=== PATIENT | male | born 1935 | race Caucasian/White ===

== ENCOUNTER 2017-10-20 10:52 | Observation (INO) | payer MEDICARE ==
--- NOTE | 2017-10-20 11:39 | RAD ---
CHEST 2 VIEWS: Date: 10/20/17 HISTORY: Dyspnea. COMPARISON: 12/25/16. FINDINGS: Cardiac silhouette and pulmonary vasculature are unremarkable. Mediastinum is midline with aortic saúl cification. Linear atelectasis at the lingula has progressed. Fluid layers within the dependent porti on of the right hemithorax. Old bilateral rib fractures are apparent. No evidence of pneumothorax. IMPRESSION: 1. Small right pleural effusion. Cause is not evident. 2. COPD. 3. Atherosclerosis. POS: KIMBERLY
[2017-10-20 11:51] LABS: Band 22 % (5-11); Hemoglobin 13.8 g/dL (14.0-18.0); Lymphocytes 9 % (21-51); MDiff Complete? YES; Mean Corpuscular HGB CONC 33.7 g/dL (32.0-36.0); Mean Corpuscular Hemoglobin 31.5 pg (27.0-31.0); Mean Corpuscular Volume 93.5 fl (80.0-94.0); Mean Platelet Volume 7.6 fL (7.4-10.4); Monocytes 7 % (0-10); Neutrophil 62 % (42-75); Platelet Count 195 thou/uL (130-400); RBC Distribution Width 12.1 % (11.5-14.5); Red Blood Cell (RBC) Count 4.38 mill/uL (4.70-6.10); White Blood Cell (WBC) Count 30.7 thou/uL (4.8-10.8)
[2017-10-20 11:56] LABS: ALT (SGPT) 10 U/L (8-55); AST (SGOT) 9 U/L (5-34); Albumin 3.8 g/dL (3.4-4.8); Alkaline Phosphatase 93 U/L (40-150); Anion Gap 15 mmol/L (10-20); BUN (Urea Nitrogen) 27 mg/dL (8.4-25.7); Bilirubin, Total 1.1 mg/dL (0.2-1.2); Calc. Creatinine Clearance 0 mL/min (70-130); Calcium 9.4 mg/dL (7.8-10.44); Carbon Dioxide 23 mmol/L (23-31); Chloride 105 mmol/L (98-107); Estimated GFR-MDRD 29; Globulin 3.5 g/dL (2.4-3.5); Glucose 231 mg/dL (83-110); Potassium 4.1 mmol/L (3.5-5.1); Protein, Total 7.3 g/dL (5.8-8.1); Sodium 139 mmol/L (136-145)
[2017-10-20 12:22] LABS: CKMB 1.5 ng/mL (0-6.6); Troponin I Less than 0.010 ng/mL (< 0.028)
[2017-10-20 14:06] LABS: Bilirubin Negative (Negative); Blood, Urine Negative (Negative); Clarity TURBID (Clear); Glucose, Urine (Dipstick) Negative (Negative); Leukocyte Large (Negative); Nitrite Negative (Negative); Protein, Urine (Dipstick) Trace mg/dL (Neg-Trace); Specific Gravity, Urine 1.024 (1.002-1.036); Urobilinogen 0.2 mg/dL (0.2-1.0)
[2017-10-20 14:08] LABS: Bacteria/HPF 2+ HPF (None Seen); Hyaline Casts/LPF 0-3 HYALINE CAST LPF (0-3 Hyaline); Pathc Cast-AUWi Flag 0.58 (0-2.49); Squamous Epithelial 0-3 HPF (0-3)
[2017-10-20] MEDS ORDERED: cefTRIAXone\\ROCEPHIN 2 GM VIAL ONE (15:43)
[2017-10-20 17:54] VITALS: BMI 24.0
[2017-10-20] MEDS ORDERED: Dextrose 5 %-0.45 % NaCl 1,000 ML IV SCH (18:15)
[2017-10-20] MEDS ORDERED: Acetaminophen 325 MG TAB PO PRN (18:43)
[2017-10-20] MEDS ORDERED: Diazepam 2 MG TAB PO PRN (18:43)
[2017-10-20] MEDS ORDERED: Dextrose 50% Abboject 50 ML SYRINGE SLOW IVP PRN (18:45)
[2017-10-20] MEDS ORDERED: Dextrose 5% in Water 1,000 ML IV PRN (18:45)
[2017-10-20] MEDS ORDERED: Diabetic Tussin 200 MG/10 ML UDCUP PO PRN (18:48)
[2017-10-20] MEDS ORDERED: Mag-Al 1200 mg/1200 mg/30 ML UDCUP PO PRN (18:48)
[2017-10-20] MEDS ORDERED: Promethazine 25 MG TAB PO PRN (18:48)
[2017-10-20] MEDS ORDERED: Famotidine 20 MG TAB PO PRN (18:48)
[2017-10-20] MEDS ORDERED: Ondansetron ODT 4 MG TAB PO PRN (18:48)
[2017-10-20 20:43] LABS: Lactic Acid 2.5 mmol/L (0.5-2.2)
[2017-10-20] MEDS: Gabapentin 300 MG CAP PO SCH (20:55)
[2017-10-20] MEDS: HumaLOG 300 UNITS/3 ML VIAL SC PRN (23:28)
[2017-10-20] MEDS ORDERED: Insulin Detemir 100 UNITS/ML 10 UNITS in Pre-Filled Syringe 1 EACH SC SCH (23:45)
[2017-10-20] MEDS ORDERED: Sodium Chloride 0.9% 1,000 ML IV SCH (23:45)
--- NOTE | 2017-10-21 00:21 | HP ---
DATE OF ADMISSION: 10/20/2017 PRIMARY CARE PHYSICIAN: Bert Dailey D.O. CHIEF COMPLAINT: Weakness. HISTORY OF PRESENT ILLNESS: The patient states over the last 2 days acutely found to be worsening we akness and with dysuria, denies any hematuria, also reports increasing shortness of breath with some sputum production, longstanding history of cigar smoking, but has been quit for some years following his diagnosis of colon cancer. He is currently in remission and last bowel movement this a.m. brown soft and normal, no blood reported. The patient with a history of atrial fibrillation/flutter with s tatus post ablation in 2013. Denies any chest pains or palpitations currently. The patient has no o ther chief complaints. REVIEW OF SYSTEMS: No fevers, no chills. Positive fatigue. Positive shortness of breath. Positive sputum production. Negative chest pain. Negative palpitations. No abdomen pain, no changes in sto ols. Positive dysuria. No hematuria. No lower extremity edema. No skin rashes or ulcerations. No confusion, no headache. 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 PAST SURGICAL HISTORY: Includes hemicolectomy in 2004 for colon cancer, cardiac ablation in 2013, st atus post hemicolectomy, stent placement in 2013, left elbow fracture repair, cystoscope with stent p lacement of ureter in 2013. HOME MEDICATIONS: Include Tylenol 650 q.4 hours p.r.n. pain, Norvasc 10 mg, aspirin 325 mg, Valium 2 mg at bedtime p.r.n. insomnia, anxiety, Flonase 1 spray each nostril daily, Lasix 40 mg daily, gabap entin 300 mg t.i.d., levothyroxine 75 mcg daily, Claritin 10 mg daily, losartan 100 mg daily, metform in 500 mg extended release daily, Klor-Con 10 mEq q.a.m. PHYSICAL EXAMINATION: VITAL SIGNS: On arrival to floor, temperature of 100.2, pulse of 119, respiratory rate of 22, oxygen saturation of 92% on room air, and blood pressure 161/80. GENERAL: The patient is alert and oriented, no acute distress. HEENT: Head is normocephalic, atraumatic. Extraocular movements are intact. Oral mucosa is somewha t dry. NECK: Supple. HEART: Slightly tachycardic, no murmurs or irregular beats. LUNGS: Clear to auscultation bilaterally. No rales, wheezes, or rhonchi. ABDOMEN: Distended, somewhat bloated, but nontender, positive bowel sounds throughout. EXTREMITIES: Lower extremities without cyanosis or edema. NEUROLOGIC: The patient is alert and oriented x3, no focal deficits. Speech is normal. LABORATORY WORK: White blood cell count of 30, hemoglobin of 13.8, platelet count of 195. Sodium of 139, potassium of 4.1, CO2 of 23, BUN of 27, creatinine of 2.2, glucose of 231, total bilirubin of 1 .1, AST of 9, ALT of 10. BNP of 189. Troponin x1 less than 0.01. Albumin of 3.8. Urinalysis turbi d, large leukocyte esterase, too numerous to count white blood cells, 4-6 red blood cells, positive b acteria, negative nitrites, blood and urine cultures are pending. Chest x-ray consistent with hyperi nflation, COPD, no acute infiltrates. ASSESSMENT AND PLAN: Sepsis secondary to urinary tract infection, shortness of breath, diabetes type 2, acute on chronic renal insufficiency. Started the patient on Rocephin. We will follow up on tiffany napier. Trend out laboratory work. Start patient on IV fluid. Lactate being trended per sepsis prot ocol. The patient is currently stable. We will be transitioned to the floor. We will check EKG in the morning; however, his heart rate appears to be normal at this point in time following his ablatio n years ago. Given his tobacco history with his recent shortness of breath, we will cover with dorys Marquez for possible early chronic obstructive pulmonary disease; however, this is suspected the patient has never been diagnosed before. We will follow up on the patient's breathing situation. W e will maintain oxygen saturations above 90% with RT monitoring. We will check after Dr. Bert Dailey.
[2017-10-21] MEDS: Sodium Chloride 0.9% 1,000 ML IV SCH ×2 (00:58→09:10)
[2017-10-21 05:09] LABS: ALT (SGPT) 11 U/L (8-55); AST (SGOT) 11 U/L (5-34); Albumin 3.4 g/dL (3.4-4.8); Alkaline Phosphatase 128 U/L (40-150); Anion Gap 12 mmol/L (10-20); BUN (Urea Nitrogen) 22 mg/dL (8.4-25.7); Bilirubin, Total 0.4 mg/dL (0.2-1.2); Calc. Creatinine Clearance 40 mL/min (70-130); Calcium 8.8 mg/dL (7.8-10.44); Carbon Dioxide 21 mmol/L (23-31); Chloride 108 mmol/L (98-107); Estimated GFR-MDRD 43; Globulin 3.2 g/dL (2.4-3.5); Glucose 255 mg/dL (83-110); Lipase 25 U/L (8-78); Potassium 3.7 mmol/L (3.5-5.1); Protein, Total 6.6 g/dL (5.8-8.1); Sodium 137 mmol/L (136-145)
[2017-10-21] MEDS: Levothyroxine Sodium 75 MCG TAB PO SCH (05:11)
[2017-10-21 05:18] LABS: Band 13 % (5-11); Hemoglobin 12.7 g/dL (14.0-18.0); Lymphocytes 11 % (21-51); MDiff Complete? YES; Mean Corpuscular HGB CONC 33.2 g/dL (32.0-36.0); Mean Corpuscular Hemoglobin 31.2 pg (27.0-31.0); Mean Platelet Volume 7.9 fL (7.4-10.4); Monocytes 8 % (0-10); Neutrophil 68 % (42-75); PLT Morphology Comment Appears Adequate; Platelet Count 189 thou/uL (130-400); RBC Distribution Width 12.2 % (11.5-14.5); Red Blood Cell (RBC) Count 4.07 mill/uL (4.70-6.10); White Blood Cell (WBC) Count 25.1 thou/uL (4.8-10.8)
[2017-10-21] MEDS: HumaLOG 300 UNITS/3 ML VIAL SC PRN ×2 (06:02→12:55)
[2017-10-21] MEDS ORDERED: cloNIDine 0.1 MG TAB PO PRN (08:01)
[2017-10-21] MEDS: Aspirin 325 MG TAB PO SCH (08:03)
[2017-10-21] MEDS: Gabapentin 300 MG CAP PO SCH ×3 (08:04→19:55)
[2017-10-21] MEDS: Amlodipine 10 MG TAB PO SCH (08:05)
[2017-10-21] MEDS: Losartan 25 MG TAB PO SCH (08:06)
[2017-10-21] MEDS: Enoxaparin Sodium 30 MG/0.3 ML SYRINGE SC SCH (08:11)
--- NOTE | 2017-10-21 08:21 | PRG ---
DATE OF SERVICE: 10/21/2017 SUBJECTIVE: The patient is feeling some better. He continues to have some nausea. He admits to colin rrhea, no fevers. He continues to have pain with urinating and more frequent urination. Denies ches t pain. Shortness of breath has improved since last night. No further fever. Eating well. He is w alking in the room without difficulty. OBJECTIVE: VITAL SIGNS: Temperature 97.7, T-max is 100.2, pulse of 98-110, respirations 18-20, blood pressure 1 70/79, pulse oximetry is 95% on 1-1/2 liters. GENERAL: He is awake and alert, in no acute distress. Speech is clear. HEENT: Mucosa is moist. NECK: Supple. HEART: Regular rate and rhythm. LUNGS: Clear to auscultation. No wheeze, rales or rhonchi. ABDOMEN: Positive bowel sounds. Positive suprapubic tenderness, no rebound or guarding. No CVA ten derness. EXTREMITIES: No clubbing, cyanosis or edema, 2+ peripheral pulses. LABORATORY DATA: White blood cell count 25.1, hemoglobin and hematocrit 12.7 and 38.3 with 13% bands down from 22% bands. Sodium 137, potassium 3.7, chloride 108, CO2 of 21, BUN and creatinine 22 and 1.55 with a GFR of 43, serum glucose of 255. Urine culture is pending. Blood cultures are negative x12 hours. Chest x-ray from yesterday revealed no active disease, COPD, atherosclerosis, small right pleural effusion. ASSESSMENT AND PLAN: 1. This is an 82-year-old gentleman with multiple medical problems admitted for a urinary tract infe ction, rule out urosepsis. He has had improvement with IV antibiotics, IV fluid resuscitation. I wi ll continue antibiotics, awaiting cultures. Lactic acid continues to trend downward from admission. 2. Chronic obstructive pulmonary disease. We will attempt to wean off oxygen and continue neb treat ments. 3. Type 2 diabetes. We will continue medications and insulin sliding scale. 4. Hypertension. We will start p.o. clonidine and discontinue IV fluids. DISPOSITION: Awaiting cultures. Hopefully, home tomorrow.
[2017-10-21] MEDS ORDERED: Polyethylene Glycol 3350 17 GM Packet PO SCH (09:00)
[2017-10-21] MEDS: Famotidine 20 MG TAB PO SCH ×2 (09:42→21:13)
[2017-10-21] MEDS: Phenazopyridine HCl 97.5 MG TABLET PO SCH ×3 (09:42→17:07)
[2017-10-21] MEDS ORDERED: HYDROcodone/Acetaminophen 5/325 mg Tablet PO PRN (14:40)
[2017-10-21] MEDS: HYDROcodone/Acetaminophen 5/325 mg Tablet PO PRN (14:57)
[2017-10-21] MEDS ORDERED: cefTRIAXone\\ROCEPHIN 2 GM in Sodium Chloride 0.9% 100 ML IVPB SCH (16:00)
--- NOTE | 2017-10-21 21:13 | EKG ---
Test Reason : Blood Pressure : / mmHG Vent. Rate : 100 BPM Atrial Rate : 100 BPM P-R Int : 216 ms QRS Dur : 108 ms QT Int : 324 ms P-R-T Axes : 069 -76 078 degrees QTc Int : 417 ms Sinus rhythm with 1st degree A-V block Left axis deviation Pulmonary disease pattern Poor R wave progression Abnormal ECG When compared with ECG of 20-OCT-2017 10:59, (Unconfirmed) No significant change was found Confirmed by TAVIA BANERJEE ([id number]) on 10/21/2017 9:12:44 PM Referred By: KILO Confirmed By:TAVIA BANERJEE
[2017-10-22] MEDS: HYDROcodone/Acetaminophen 5/325 mg Tablet PO PRN ×2 (03:04→11:29)
[2017-10-22 05:02] LABS: Anion Gap 7 mmol/L (10-20); BUN (Urea Nitrogen) 26 mg/dL (8.4-25.7); Calc. Creatinine Clearance 42 mL/min (70-130); Calcium 8.8 mg/dL (7.8-10.44); Carbon Dioxide 24 mmol/L (23-31); Chloride 108 mmol/L (98-107); Estimated GFR-MDRD 45; Glucose 236 mg/dL (83-110); Potassium 3.8 mmol/L (3.5-5.1); Sodium 135 mmol/L (136-145)
[2017-10-22 05:33] LABS: Band 4 % (5-11); Hemoglobin 11.5 g/dL (14.0-18.0); Lymphocytes 8 % (21-51); MDiff Complete? YES; Mean Corpuscular HGB CONC 33.7 g/dL (32.0-36.0); Mean Corpuscular Hemoglobin 31.4 pg (27.0-31.0); Mean Corpuscular Volume 93.1 fl (80.0-94.0); Mean Platelet Volume 8.2 fL (7.4-10.4); Monocytes 8 % (0-10); Neutrophil 80 % (42-75); PLT Morphology Comment Appears Adequate; Platelet Count 202 thou/uL (130-400); RBC Distribution Width 12.3 % (11.5-14.5); RBC Morphology Normal; Red Blood Cell (RBC) Count 3.66 mill/uL (4.70-6.10); White Blood Cell (WBC) Count 17.6 thou/uL (4.8-10.8)
[2017-10-22] MEDS ORDERED: Polyethylene Glycol 3350 17 GM Packet PO PRN (07:28)
[2017-10-22 07:36] VITALS: BP 118/68; TEMP 98.3
[2017-10-22] MEDS: Famotidine 20 MG TAB PO SCH (08:03)
[2017-10-22] MEDS: Amlodipine 10 MG TAB PO SCH (08:04)
[2017-10-22] MEDS: Aspirin 325 MG TAB PO SCH (08:04)
[2017-10-22] MEDS: Losartan 25 MG TAB PO SCH (08:04)
[2017-10-22] MEDS: Enoxaparin Sodium 30 MG/0.3 ML SYRINGE SC SCH (08:05)
[2017-10-22] MEDS: Phenazopyridine HCl 97.5 MG TABLET PO SCH ×2 (08:05→11:30)
[2017-10-22] MEDS: Levothyroxine Sodium 75 MCG TAB PO SCH (08:05)
[2017-10-22] MEDS: Gabapentin 300 MG CAP PO SCH (08:05)
--- NOTE | 2017-10-22 12:16 | DIS ---
ADMISSION DIAGNOSES: 1. Urinary tract infection, rule out urosepsis. 2. Chronic obstructive pulmonary disease exacerbation. DISCHARGE DIAGNOSES: 1. Urinary tract infection. 2. Chronic obstructive pulmonary disease. 3. Type 2 diabetes. 4. History of colon cancer. 5. History of paroxysmal atrial fibrillation. CONSULTATIONS: None. PROCEDURES: IV antibiotics, IV fluid resuscitation. HOSPITAL COURSE: This is an 82-year-old gentleman with a history of type 2 diabetes, hypertension, c olon cancer, paroxysmal atrial fibrillation, history of kidney stones who presented to the emergency department with 2 days of worsening weakness with dysuria, shortness of breath and cough. He was adm itted. He was found to have a urinary tract infection, started on IV Rocephin, IV fluids. Sepsis pr otocol was initiated. He continued to improve throughout his hospitalization. His blood cultures re mained negative throughout, his urine culture did grow Klebsiella, which was sensitive to Rocephin. Once the blood cultures were negative over 24 hours he was stable for discharge. He is taking p.o. w ell. He continued to have some suprapubic pain, but improved from admission. His breathing continue d to improve with his neb treatments and once his fever and infection began to resolve. DISCHARGE PHYSICAL EXAMINATION: VITAL SIGNS: Temperature 99.2, pulse of 90, respirations 18, pulse ox is 93% on room air, blood pres sure 100/65. GENERAL: He is awake and alert, in no acute distress. Speech is clear. HEENT: Mucosa is moist. NECK: Supple. HEART: Regular rate and rhythm. LUNGS: Decreased breath sounds, but clear. No wheeze, rales or rhonchi. ABDOMEN: Soft. Positive for suprapubic tenderness, no rebound or guarding. EXTREMITIES: No edema. DISCHARGE LABS: White blood cell count 17.6, which is down from 30.7 thousand on admission, hemoglob in and hematocrit 11.4 and 34.1, platelets of 202. His bandemia decreased from 22% down to 4%. Sodi um 135, potassium 3.8, chloride 108, CO2 of 24, BUN and creatinine 26 and 1.49, calcium of 8.8. Aga in, urine culture positive for Klebsiella pneumonia sensitive to third generation cephalosporins. DISCHARGE MEDICATIONS: Cefdinir 300 mg b.i.d. for 7 more days, Tylenol p.r.n., amlodipine 10 mg get y, aspirin 325 mg daily, clonidine 0.1 q.4h. p.r.n., diazepam 2 mg daily p.r.n. anxiety, Pepcid 10 mg b.i.d., Neurontin 300 mg t.i.d., levothyroxine 75 mcg daily, Cozaar 100 mg daily, MiraLax p.r.n. no bowel movement. FOLLOWUP INSTRUCTIONS: The patient to follow up in my office in 1 week.
== END 2017-10-22 11:37 | disposition home or self-care (01) ==
LOC: ERS 10:52 → T4-B 17:43
PROVIDERS: ADMIT Family Medicine; ATTEND Family Medicine
DX: N39.0 Urinary tract infection, site not specified (principal); J44.9 Chronic obstructive pulmonary disease, unspecified; I48.0 Paroxysmal atrial fibrillation; I12.9 Hypertensive chronic kidney disease with stage 1 through stage 4 chronic kidney disease, or unspecified chronic kidney disease; E11.22 Type 2 diabetes mellitus with diabetic chronic kidney disease; N18.9 Chronic kidney disease, unspecified; I48.91 Unspecified atrial fibrillation; E03.9 Hypothyroidism, unspecified; B96.1 Klebsiella pneumoniae [K. pneumoniae] as the cause of diseases classified elsewhere; Z79.82 Long term (current) use of aspirin; Z79.84 Long term (current) use of oral hypoglycemic drugs; Z79.899 Other long term (current) drug therapy; Z90.49 Acquired absence of other specified parts of digestive tract; Z98.890 Other specified postprocedural states; Z87.891 Personal history of nicotine dependence; Z85.038 Personal history of other malignant neoplasm of large intestine; Z87.442 Personal history of urinary calculi; Z86.12 Personal history of poliomyelitis
CPT/HCPCS: 71046; 80048; 80053 ×2; 82553; 82962 ×3; 83605; 83690; 83880; 84484; 85025 ×3; 87040; 87077; 87086; 87186; 93005 ×2; 94640 ×3; 94760; 96361 ×2; 96365; 96366; 97139 ×2; 99285; G0378; 36415; 36416; 81003; 81015; 93010; A4216; J0696; J1650; J1815; J7050; J7620

== ENCOUNTER 2017-12-13 09:37 | Outpatient (CLI) | payer MEDICARE, OTHER | END 2017-12-13 09:38 | disposition home or self-care (01) | LOC: BICCT 09:37 | PROVIDERS: ATTEND Urology | DX: N20.0 Calculus of kidney (principal); R32 Unspecified urinary incontinence; J90 Pleural effusion, not elsewhere classified | CPT/HCPCS: 74176 ==

== ENCOUNTER 2017-12-30 16:06 | Outpatient (CLI) | payer MEDICARE ==
[2017-12-30 18:05] LABS: Hemoglobin 12.7 g/dL (14.0-18.0); Mean Corpuscular HGB CONC 33.6 g/dL (32.0-36.0); Mean Corpuscular Hemoglobin 30.7 pg (27.0-31.0); Mean Corpuscular Volume 91.4 fl (80.0-94.0); Mean Platelet Volume 6.9 fL (7.4-10.4); Platelet Count 294 thou/uL (130-400); RBC Distribution Width 12.7 % (11.5-14.5); Red Blood Cell (RBC) Count 4.13 mill/uL (4.70-6.10); White Blood Cell (WBC) Count 9.6 thou/uL (4.8-10.8)
[2017-12-30 18:16] LABS: Anion Gap 13 mmol/L (10-20); BUN (Urea Nitrogen) 24 mg/dL (8.4-25.7); Calc. Creatinine Clearance 0 mL/min (70-130); Calcium 9.5 mg/dL (7.8-10.44); Carbon Dioxide 27 mmol/L (23-31); Chloride 99 mmol/L (98-107); Estimated GFR-MDRD 58; Glucose 118 mg/dL (83-110); Sodium 135 mmol/L (136-145)
== END 2017-12-30 16:07 | disposition home or self-care (01) ==
LOC: LABBT 16:06
PROVIDERS: ATTEND Urology
DX: Z01.818 Encounter for other preprocedural examination (principal); N40.1 Benign prostatic hyperplasia with lower urinary tract symptoms; R33.8 Other retention of urine
CPT/HCPCS: 80048; 81001; 85027; 87086; G0103; 87077; 87186

== ENCOUNTER 2018-01-08 05:43 | Day surgery (SDC) | payer MEDICARE ==
[2017-12-30 16:24] VITALS: BMI 23.2
[2018-01-08] MEDS ORDERED: Fentanyl 100 MCG/2 ML VIAL ONE (06:10)
[2018-01-08] MEDS ORDERED: Dexamethasone 4 mg/ml Vial ONE (06:49)
[2018-01-08] MEDS ORDERED: Levofloxacin 500 mg/D5W 100 ml Premix Bag ONE (06:49)
[2018-01-08] MEDS ORDERED: Furosemide 20 MG/2 ML VIAL ONE (07:14)
[2018-01-08] MEDS ORDERED: B & O ONE (07:14)
[2018-01-08] MEDS ORDERED: Metoclopramide HCl 10 MG/2 ML VIAL ONE (13:45)
[2018-01-08] MEDS ORDERED: PROPOFOL 200 MG/20 ML VIAL ONE (13:45)
[2018-01-08] MEDS ORDERED: ePHEDrine/0.9% NaCl/PF SYRINGE 50 mg/10 ml ONE (13:45)
[2018-01-08] MEDS ORDERED: PHENYLEPHRINE-NS 100 MCG/ML 10 ML SYRINGE ONE (13:45)
[2018-01-08] MEDS ORDERED: Lidocaine 1% PF 5 ML VIAL ONE (13:45)
[2018-01-08] MEDS ORDERED: Ondansetron HCl/PF 4 MG/2 ML Vial ONE (13:45)
--- NOTE | 2018-01-08 19:34 | OP ---
DATE OF SERVICE: 01/08/2018 PREOPERATIVE DIAGNOSES: Benign prostatic hypertrophy and retention. POSTOPERATIVE DIAGNOSES: Benign prostatic hypertrophy and retention. PROCEDURE: GreenLight laser vaporization of the prostate with enucleation of the middle and lateral lobes. SURGEON: Zarina Roberson M.D. ANESTHESIA: General with laryngeal mask airway. FINDINGS: Adequate resection of all 3 lobes using 228,464 joules. COMPLICATIONS: None. DRAIN REMAINING: A 20-Ivorian 2-way. BLOOD LOSS: Minimal. INDICATIONS: The patient is an 82-year-old gentleman, who had BPH and ultimately retention and was still with an indwelling catheter given his significant incomplete emptying and intermittent retention, who is set up for definitive therapy. TECHNIQUE: The patient was brought into the room by Anesthesia, laid on the table in supine position. After receiving a general anesthetic, his legs were placed in lithotomy position and his perineum was prepped and draped in sterile fashion. Using a 22.5-Ivorian cystoscope and a 30-degree lens, urethra was traversed and the bladder inspected. Ureteral orifices were identified and preserved throughout the case. There were no lesions noted. Attention was turned to the middle lobe where it was was enucleated and one of the chips from this was large enough that it required a grasper to be removed and then attention was turned to the lateral lobes or at a power level of 80 near the bladder neck. These were taken down and then enucleated the mid gland for a power level of 180. This was taken all the way down to the veru until the prostatic urethra was wide open. All chips were ensured to be out. The bladder was further irrigated and decompressed and reexamined for hemostasis. Bladder was filled fairly full and then scope removed. A good spleen was noted. Scope was put back in, again decompressed for hemostasis. Power level of 80 was used to paint the bladder neck at any areas of concern and then the scope was removed a final time and 20-Ivorian catheter placed to gravity. The patient tolerated procedure well and was then awakened and transferred to the PACU in stable condition. [facility]
== END 2018-01-08 11:19 | disposition home or self-care (01) ==
LOC: SDC 05:43
PROVIDERS: ATTEND Urology
PROC: 0V507ZZ Destruction of Prostate, Via Natural or Artificial Opening (ICD-10-PCS; principal; 2018-01-08)
DX: N40.1 Benign prostatic hyperplasia with lower urinary tract symptoms (principal); R33.8 Other retention of urine; R39.14 Feeling of incomplete bladder emptying; R32 Unspecified urinary incontinence; E11.9 Type 2 diabetes mellitus without complications; I10 Essential (primary) hypertension; E03.9 Hypothyroidism, unspecified; M19.90 Unspecified osteoarthritis, unspecified site; E87.1 Hypo-osmolality and hyponatremia; N39.0 Urinary tract infection, site not specified; Z79.82 Long term (current) use of aspirin; Z79.52 Long term (current) use of systemic steroids; Z79.899 Other long term (current) drug therapy; Z79.84 Long term (current) use of oral hypoglycemic drugs; Z88.8 Allergy status to other drugs, medicaments and biological substances
CPT/HCPCS: 88305; J0131; J1100; J1940; J1956; J2001; J2405; J2704; J2765; J3010

== ENCOUNTER 2020-11-03 13:39 | Inpatient (IN) | payer MEDICARE ==
[2020-11-03 14:22] LABS: #Eosinphils 0.3 thou/uL (0.0-0.7); #Lymphocytes 1.6 thou/uL (1.20-3.40); #Monocytes 0.6 thou/uL (0.11-0.59); #Neutrophils 8.4 thou/uL (1.40-6.50); %Basophils 0.4 % (0.0-1.0); %Eosinophils 2.8 % (0.0-10.0); %Lymphocytes 14.7 % (21.0-51.0); %Monocytes 5.8 % (0.0-10.0); %Neutrophils 76.4 % (42.0-75.0); Hemoglobin 13.3 g/dL (14.0-18.0); Mean Corpuscular HGB CONC 32.3 g/dL (32.0-36.0); Mean Corpuscular Hemoglobin 29.8 pg (27.0-31.0); Mean Corpuscular Volume 92.2 fL (78.0-98.0); Mean Platelet Volume 7.5 fL (7.4-10.4); Platelet Count 286 thou/uL (130-400); RBC Distribution Width 12.3 % (11.5-14.5); Red Blood Cell (RBC) Count 4.47 mill/uL (4.70-6.10); White Blood Cell (WBC) Count 10.9 thou/uL (4.8-10.8)
[2020-11-03] MEDS ORDERED: Lorazepam 2 MG/ML VIAL ONE (14:40)
[2020-11-03] MEDS ORDERED: levETIRAcetam in NS 100 ML ONE (14:43)
[2020-11-03 14:46] LABS: ALT (SGPT) 10 U/L (8-55); AST (SGOT) 12 U/L (5-34); Albumin 4.1 g/dL (3.4-4.8); Alkaline Phosphatase 103 U/L (40-110); Anion Gap 15 mmol/L (10-20); BUN (Urea Nitrogen) 28 mg/dL (8.4-25.7); Bilirubin, Total 0.5 mg/dL (0.2-1.2); Calc. Creatinine Clearance 0 mL/min (70-130); Calcium 9.6 mg/dL (7.8-10.44); Carbon Dioxide 28 mmol/L (23-31); Chloride 101 mmol/L (98-107); Globulin 3.9 g/dL (2.4-3.5); Glucose 163 mg/dL (83-110); Potassium 4.8 mmol/L (3.5-5.1); Sodium 139 mmol/L (136-145)
[2020-11-03] MEDS ORDERED: Ondansetron ODT 4 MG TAB PO PRN (16:11)
[2020-11-03] MEDS ORDERED: Acetaminophen 325 MG TAB PO PRN (16:11)
[2020-11-03] MEDS ORDERED: Ondansetron PF 4 MG/2 ML Vial IVP PRN (16:11)
[2020-11-03] MEDS ORDERED: Lorazepam 2 MG/ML VIAL SLOW IVP PRN (16:14)
[2020-11-03 19:49] LABS: SARS-CoV-2 NAA Rapid Test Not Detected (NotDetected)
[2020-11-03] MEDS ORDERED: levETIRAcetam in NS 500 MG in Premix Bag 1 BAG IVPB SCH (21:00)
[2020-11-03 21:18] VITALS: BMI 22.4
[2020-11-04 04:24] LABS: #Basophils 0.1 thou/uL (0.0-0.2); #Eosinphils 0.6 thou/uL (0.0-0.7); #Lymphocytes 1.8 thou/uL (1.20-3.40); #Monocytes 1.1 thou/uL (0.11-0.59); #Neutrophils 6.3 thou/uL (1.40-6.50); %Basophils 0.6 % (0.0-1.0); %Eosinophils 5.8 % (0.0-10.0); %Lymphocytes 18.1 % (21.0-51.0); %Monocytes 11.3 % (0.0-10.0); %Neutrophils 64.2 % (42.0-75.0); Hemoglobin 11.1 g/dL (14.0-18.0); Mean Corpuscular HGB CONC 32.7 g/dL (32.0-36.0); Mean Corpuscular Volume 91.7 fL (78.0-98.0); Mean Platelet Volume 7.3 fL (7.4-10.4); Platelet Count 236 thou/uL (130-400); RBC Distribution Width 12.2 % (11.5-14.5); Red Blood Cell (RBC) Count 3.69 mill/uL (4.70-6.10); White Blood Cell (WBC) Count 9.8 thou/uL (4.8-10.8)
[2020-11-04 04:42] LABS: Anion Gap 11 mmol/L (10-20); BUN (Urea Nitrogen) 23 mg/dL (8.4-25.7); Calc. Creatinine Clearance 46 mL/min (70-130); Carbon Dioxide 24 mmol/L (23-31); Chloride 106 mmol/L (98-107); Glucose 117 mg/dL (83-110); Potassium 4.3 mmol/L (3.5-5.1); Sodium 137 mmol/L (136-145)
[2020-11-04] MEDS: levETIRAcetam in NS 500 MG in Premix Bag 1 BAG IVPB SCH ×2 (09:04→21:32)
[2020-11-04] MEDS ORDERED: Magnevist 469MG/ML 20 ML VIAL ONE (12:37)
[2020-11-04] MEDS ORDERED: Fluticasone Propionate Nasal Spray 16 gm Bottle NASAL PRN (14:03)
[2020-11-04] MEDS ORDERED: Acetaminophen 500 MG TAB PO PRN (14:03)
[2020-11-04] MEDS ORDERED: Diazepam 2 MG TAB PO PRN (14:03)
[2020-11-04] MEDS: Potassium Chloride 10 MEQ TAB PO SCH (21:31)
[2020-11-04] MEDS: Carvedilol 6.25 MG TAB PO SCH (21:31)
[2020-11-04] MEDS: Tamsulosin HCl 0.4 MG CAP PO SCH (21:31)
[2020-11-04 22:33] LABS: Bacteria/HPF None Seen HPF (None Seen); Bilirubin Negative (Negative); Blood, Urine Negative (Negative); Clarity Clear (Clear); Glucose, Urine (Dipstick) Normal (Negative); Ketone, Urine Negative (Negative); Leukocyte Negative Leu/uL (Negative); Nitrite Negative (Negative); Protein, Urine (Dipstick) Negative (Neg-Trace); RBC/HPF 0-3 HPF (0-3); Specific Gravity, Urine 1.014 (1.002-1.036); Squamous Epithelial 0-3 HPF (0-3); Urobilinogen Normal mg/dL (Less than 2); WBC/HPF 0-3 HPF (0-3); pH, Urine 5.5 (5.0-9.0)
[2020-11-04 22:34] LABS: Sperm/HPF Rare HPF (None Seen)
[2020-11-04 22:35] LABS: Urine Culture Reflex No No
[2020-11-04 22:44] LABS: Amphetamine Not Detected (NotDetected); Barbiturates Screen Not Detected (NotDetected); Benzodiazepine Screen Detected (NotDetected); Cocaine Metabolite Screen Not Detected (NotDetected); Medtox Control Line Valid? VALID (VALID); Medtox Reader # READER 4; Methadone Not Detected (NotDetected); Methamphetamine Not Detected (NotDetected); Opiate Screen Not Detected (NotDetected); Oxycodone Screen Not Detected (NotDetected); Phencyclidine (PCP) Not Detected (NotDetected); THC/Cannabinoid Screen Not Detected (NotDetected); Tricyclic Screen Not Detected (NotDetected)
[2020-11-05] MEDS: Levothyroxine Sodium 75 MCG TAB PO SCH (06:10)
[2020-11-05] MEDS: levETIRAcetam in NS 500 MG in Premix Bag 1 BAG IVPB SCH (08:51)
[2020-11-05] MEDS: Aspirin 325 MG TAB PO SCH (08:52)
[2020-11-05] MEDS: Carvedilol 6.25 MG TAB PO SCH ×2 (08:52→21:17)
[2020-11-05] MEDS: Potassium Chloride 10 MEQ TAB PO SCH ×2 (08:52→21:17)
[2020-11-05] MEDS: Tamsulosin HCl 0.4 MG CAP PO SCH ×2 (08:52→21:17)
[2020-11-05] MEDS: Finasteride 5 MG TAB PO SCH (08:53)
[2020-11-05] MEDS: Losartan 25 MG TAB PO SCH (08:53)
[2020-11-05] MEDS: Cholecalciferol 1,000 UNITS (25 MCG) TAB PO SCH (08:53)
[2020-11-05] MEDS: Loratadine 10 MG TAB PO SCH (08:53)
[2020-11-05] MEDS ORDERED: (Cinnamon Bark [Cinnamon] 500 MG Capsule) PO SCH (09:00)
[2020-11-05] MEDS: HumaLOG 300 UNITS/3 ML VIAL SC PRN (11:57)
[2020-11-05] MEDS: levETIRAcetam 500 MG TAB PO SCH (21:17)
[2020-11-06] MEDS: Levothyroxine Sodium 75 MCG TAB PO SCH (05:45)
[2020-11-06 07:56] VITALS: BP 143/77; TEMP 98.1
[2020-11-06] MEDS: Finasteride 5 MG TAB PO SCH (08:25)
[2020-11-06] MEDS: Tamsulosin HCl 0.4 MG CAP PO SCH (08:25)
[2020-11-06] MEDS: Aspirin 325 MG TAB PO SCH (08:25)
[2020-11-06] MEDS: levETIRAcetam 500 MG TAB PO SCH (08:25)
[2020-11-06] MEDS: Cholecalciferol 1,000 UNITS (25 MCG) TAB PO SCH (08:25)
[2020-11-06] MEDS: Carvedilol 6.25 MG TAB PO SCH (08:25)
[2020-11-06] MEDS: Potassium Chloride 10 MEQ TAB PO SCH (08:25)
[2020-11-06] MEDS: Losartan 25 MG TAB PO SCH (08:26)
[2020-11-06] MEDS: Loratadine 10 MG TAB PO SCH (08:26)
[2020-11-06] MEDS: HumaLOG 300 UNITS/3 ML VIAL SC PRN (11:28)
== END 2020-11-06 11:41 | disposition home or self-care (01) | DRG 101 ==
LOC: ERS 13:39 → IMCU/EMU 16:11 → 2SE 11-04 18:14
PROVIDERS: ADMIT Internal Medicine; ATTEND Internal Medicine
DX: G40.109 Localization-related (focal) (partial) symptomatic epilepsy and epileptic syndromes with simple partial seizures, not intractable, without status epilepticus (principal); J90 Pleural effusion, not elsewhere classified; E11.9 Type 2 diabetes mellitus without complications; I10 Essential (primary) hypertension; D32.0 Benign neoplasm of cerebral meninges; Z20.822 Contact with and (suspected) exposure to COVID-19; M16.11 Unilateral primary osteoarthritis, right hip; Z88.8 Allergy status to other drugs, medicaments and biological substances; Z79.82 Long term (current) use of aspirin; Z79.84 Long term (current) use of oral hypoglycemic drugs; Z85.038 Personal history of other malignant neoplasm of large intestine; Z92.21 Personal history of antineoplastic chemotherapy; Z90.49 Acquired absence of other specified parts of digestive tract
CPT/HCPCS: 0240U; 36415; 36416; 70450; 70553; 71045; 71250; 72148; 80048; 80053; 80306; 81001; 84484; 85025; 93005; 95712; 95819; 95957; 96365; 96375; A9579; J1815; J1953; J2060

== ENCOUNTER 2021-04-18 11:15 | Outpatient (CLI) | payer MEDICARE ==
[~2021-04-18 11:15] MED LIST: Magnevist 469MG/ML 20 ML VIAL ONE
== END 2021-04-18 11:16 | disposition home or self-care (01) ==
LOC: MRI 11:15
PROVIDERS: ATTEND Neurological Surgery
DX: D33.2 Benign neoplasm of brain, unspecified (principal)
CPT/HCPCS: 70553